=== PATIENT | female | born 1995 | race Caucasian/White ===

== ENCOUNTER 2021-03-02 22:40 | Emergency (ER) | payer BC, SELFPAY ==
[~2021-03-02] VITALS: Ht 177.8 cm; Wt 62.3 kg
[2021-03-02] MEDS ORDERED: BENA25CA4 PO (22:57)
[2021-03-02] MEDS ORDERED: RACEPINEPHrine 2.25 % UD INHA INH ONE (23:05)
[2021-03-02] MEDS ORDERED: methylPREDNISolone 125MG 2ML VIAL IV ONE (23:10)
[2021-03-02 23:27] LABS: BASO % 0.4 % (0.0-1.0); EOS # 0.2 10^3/uL (0.0-0.5); EOS % 2.3 % (0.0-3.0); HEMATOCRIT 40.4 % (36.0-47.0); HEMOGLOBIN 14.4 g/dl (12.0-15.5); LYMPH # 3.2 10^3/uL (1.5-5.0); MEAN CORPUSCULAR HEMOGLOBIN 32.4 pg (27.0-33.0); MEAN CORPUSCULAR HGB CONC 35.6 g/dl (32.0-36.5); MONO # 1.2 10^3/uL (0.0-0.8); MONO % 12.8 % (2.0-8.0); NEUTROPHILS # 4.7 10^3/uL (1.5-8.5); NEUTROPHILS % 50.2 % (36.0-66.0); PLATELET COUNT, AUTOMATED 272 10^3/uL (150-450); RED BLOOD COUNT 4.44 10^6/uL (4.00-5.40); WHITE BLOOD COUNT 9.4 10^3/uL (4.0-10.0)
[2021-03-02 23:44] LABS: BLOOD UREA NITROGEN 14 MG/DL (7-18); CALCIUM LEVEL 9.2 MG/DL (8.5-10.1); CARBON DIOXIDE LEVEL 27 MEQ/L (21-32); CHLORIDE LEVEL 107 MEQ/L (98-107); CREATININE FOR GFR 1.05 MG/DL (0.55-1.30); GLOMERULAR FILTRATION RATE > 60.0 (>60); GLUCOSE, FASTING 105 MG/DL (70-100); POTASSIUM SERUM 3.8 MEQ/L (3.5-5.1); SODIUM LEVEL 143 MEQ/L (136-145)
[2021-03-03] MEDS ORDERED: OMEP40CA4 PO (03:32)
[2021-03-03] MEDS ORDERED: PRED20TA PO (03:32)
[2021-03-03] MEDS ORDERED: SUCR1TA PO (03:32)
[2021-03-03 03:45] VITALS: BP 132/72
== END 2021-03-03 03:57 | disposition home or self-care (01) ==
LOC: M ED 22:40
DX: R06.1 Stridor (principal); K21.9 Gastro-esophageal reflux disease without esophagitis; Z79.899 Other long term (current) drug therapy
CPT/HCPCS: 71045; 80048; 84702; 85025; 87798; 93041; 94640; 94760; 96374; 99285; J2930

== ENCOUNTER 2021-10-30 15:40 | Emergency (ER) | payer BC ==
[~2021-10-30] VITALS: Ht 162.6 cm; Wt 68.9 kg
[~2021-10-30 15:40] MED LIST: BENA25CA4 PO; OMEP40CA4 PO; PRED20TA PO; SUCR1TA PO
[2021-10-30] MEDS ORDERED: FLUTISP (15:59)
[2021-10-30] MEDS ORDERED: ALBUTEROL SULFATE 2.5 MG/0.5 ML INH NEB SOLN INH ONE (16:15)
[2021-10-30] MEDS ORDERED: methylPREDNISolone 125MG 2ML VIAL IV ONE (16:15)
[2021-10-30] MEDS ORDERED: FAMOTIDINE 20MG/2ML VIAL IVP ONE (16:25)
[2021-10-30 17:30] VITALS: BP 121/62
[2021-10-30] MEDS ORDERED: EPIP0.3I2 IM (17:41)
[2021-10-30] MEDS ORDERED: PRED20TA PO (17:41)
== END 2021-10-30 18:05 | disposition home or self-care (01) ==
LOC: M ED 15:40
DX: R09.89 Other specified symptoms and signs involving the circulatory and respiratory systems (principal); T78.40XA Allergy, unspecified, initial encounter; K21.9 Gastro-esophageal reflux disease without esophagitis
CPT/HCPCS: 93041; 94760; 96374; 96375; 99284; J2930